=== PATIENT | female | born 1985 | race Caucasian/White ===

== ENCOUNTER 2017-12-19 10:15 | Outpatient (CLI) | payer OTHER | END 2017-12-19 10:16 | disposition home or self-care (01) | LOC: DTY/OP 10:15 | PROVIDERS: ATTEND Obstetrics & Gynecology | DX: O24.419 Gestational diabetes mellitus in pregnancy, unspecified control (principal); Z71.3 Dietary counseling and surveillance | CPT/HCPCS: 97802 ==

== ENCOUNTER 2018-05-27 12:17 | Outpatient (CLI) | payer OTHER | END 2018-05-27 12:18 | disposition home or self-care (01) | LOC: BICMRI 12:17 | PROVIDERS: ATTEND Internal Medicine | DX: G43.909 Migraine, unspecified, not intractable, without status migrainosus (principal) | CPT/HCPCS: 70551 ==